=== PATIENT | female | born 1985 | race Caucasian/White ===

== ENCOUNTER 2016-12-16 15:58 | Emergency (ER) | payer SELFPAY | END 2016-12-16 17:26 | disposition left against medical advice (07) | LOC: D.ER 15:58 | DX: R05 Cough (principal) ==

== ENCOUNTER 2016-12-16 20:43 | Emergency (ER) | payer SELFPAY | END 2016-12-16 22:55 | disposition home or self-care (01) | LOC: D.ER 20:43 | DX: H66.92 Otitis media, unspecified, left ear (principal); J06.9 Acute upper respiratory infection, unspecified; F41.9 Anxiety disorder, unspecified; F32.9 Major depressive disorder, single episode, unspecified; F17.200 Nicotine dependence, unspecified, uncomplicated ==

== ENCOUNTER 2017-03-16 11:12 | Emergency (ER) | payer SELFPAY | END 2017-03-16 14:51 | disposition home or self-care (01) | LOC: D.ER 11:12 | DX: S69.92XA Unspecified injury of left wrist, hand and finger(s), initial encounter (principal); W19.XXXA Unspecified fall, initial encounter; Y93.89 Activity, other specified; Y92.89 Other specified places as the place of occurrence of the external cause; F17.200 Nicotine dependence, unspecified, uncomplicated ==

== ENCOUNTER 2017-04-08 07:52 | Emergency (ER) | payer SELFPAY | END 2017-04-08 08:59 | disposition home or self-care (01) | LOC: D.ER 07:52 | DX: J01.90 Acute sinusitis, unspecified (principal); H66.92 Otitis media, unspecified, left ear; R09.89 Other specified symptoms and signs involving the circulatory and respiratory systems; F17.200 Nicotine dependence, unspecified, uncomplicated ==

== ENCOUNTER 2017-09-10 18:17 | Emergency (ER) | payer MEDICAID | END 2017-09-10 20:07 | disposition home or self-care (01) | LOC: D.ER 18:17 | DX: M25.561 Pain in right knee (principal); M76.9 Unspecified enthesopathy, lower limb, excluding foot; F17.200 Nicotine dependence, unspecified, uncomplicated ==

== ENCOUNTER 2017-09-22 13:32 | Emergency (ER) | payer MEDICAID | END 2017-09-22 15:30 | disposition home or self-care (01) | LOC: D.ER 13:32 | DX: J11.1 Influenza due to unidentified influenza virus with other respiratory manifestations (principal) ==

== ENCOUNTER 2017-09-24 16:40 | Emergency (ER) | payer MEDICAID | END 2017-09-24 19:45 | disposition left against medical advice (07) | LOC: D.ER 16:40 | DX: R05 Cough (principal) ==

== ENCOUNTER 2019-04-05 13:46 | Emergency (ER) | payer MEDICAID ==
[~2019-04-05] VITALS: Ht 165.1 cm; Wt 54.5 kg
[2019-04-05 14:10] VITALS: BP 129/81; Ht 165.1 cm; Wt 54.5 kg
== END 2019-04-05 16:54 | disposition left against medical advice (07) ==
LOC: D.ER 13:46
DX: G43.909 Migraine, unspecified, not intractable, without status migrainosus (principal)

== ENCOUNTER 2020-01-04 13:41 | Emergency (ER) | payer OTHER ==
[~2020-01-04] VITALS: Ht 165.1 cm; Wt 59.5 kg
[2020-01-04 13:58] VITALS: Ht 165.1 cm; Wt 59.5 kg
[2020-01-04 16:41] LABS: BASOPHILS 0.3 % (0-2); EOSINOPHILS 5.2 % (0-7); HEMATOCRIT 39.1 % (36.0-48.0); HEMOGLOBIN 12.6 g/dL (12-16); IMMATURE GRANULOCYTES 0.4 % (0-5); LYMPHOCYTES 30.4 % (15-50); MCH 28.9 pg (26.0-34.0); MCHC 32.2 g/dL (31.0-37.0); MCV 89.7 fL (80.0-100.0); MEAN PLATELET VOLUME 10.5 fL (7.4-10.4); MONOCYTES 5.2 % (2-11); NEUTROPHILS 58.5 % (40-80); PLATELET COUNT 330 10x3/uL (130-400); RBC 4.36 10x6/uL (4.00-5.40); RDW 12.8 % (11.5-14.5); WBC 9.3 10x3/uL (4.8-10.8)
[2020-01-04] MEDS ORDERED: AUGMENTIN 875-11 TAB PO (16:51)
[2020-01-04] MEDS ORDERED: HYDROCODON-ACE1 EA10 PO (16:51)
[2020-01-04 17:18] LABS: CALC OSMOLALITY 270 mosm/kg (275-300); CALCIUM 8.9 mg/dL (8.5-10.1); CARBON DIOXIDE 26.4 mmol/L (21.0-32.0); CHLORIDE - SERUM 104 mmol/L (98-107); CREATININE - SERUM 0.8 mg/dL (0.6-1.3); GLUCOSE 92 mg/dL (74-106); POTASSIUM - SERUM 4.4 mmol/L (3.5-5.1); SODIUM 136 mmol/L (136-145); UREA NITROGEN 10 mg/dL (7-18); eGFR NON AFRICAN AMERICAN 86 mL/min (90-120)
[2020-01-04 17:52] VITALS: BP 123/64
== END 2020-01-04 17:55 | disposition home or self-care (01) ==
LOC: D.ER 13:41
PROVIDERS: Family Medicine
DX: N76.4 Abscess of vulva (principal)